=== PATIENT | female | born 1970 | race Caucasian/White ===

== ENCOUNTER 2023-12-03 17:26 | Emergency (ER) | payer BC, SELFPAY ==
[2023-12-03 17:29] VITALS: BP 120/88; PULSE 116; RESP 20; TEMP 36.6; O2SAT 100; BMI 24.9
--- NOTE | 2023-12-03 17:45 | ED.EAR1 ---
HPI - Ear Problem General Chief complaint: Upper Respiratory Infection Stated complaint: EARS/COUGH Time Seen by Provider: 12/03/23 17:28 Source: patient Mode of arrival: walk-in History of Present Illness HPI Narrative: patient complaining of severe right-sided earache today. She was just recovering from an upper rest for infection. She lists ALLERGIES penicillin but she says just gives her gastrointestinal distress but no other systemic ALLERGIC type symptomatology. She does not have a loss of voice or severe runny nose. She is treated for high blood pressure so she cannot take any decongestants. She's not had previous ear infection or surgery before. Related Data Allergies Allergy/AdvReac Type Severity Reaction Status Date / Time acetaminophen [From Percocet] Allergy Severe Verified 12/03/23 17:33 hydrocodone [From Vicodin] Allergy Severe Verified 12/03/23 17:33 meperidine [From Demerol] Allergy Severe Verified 12/03/23 17:33 oxycodone [From Percocet] Allergy Severe Verified 12/03/23 17:33 Penicillins Allergy Severe Verified 12/03/23 17:33 prochlorperazine Allergy Severe Verified 12/03/23 17:33 [From Compazine] tramadol [From Ultram] Allergy Severe Verified 12/03/23 17:33 Exam Narrative Exam Narrative: awake alert courting her right ear. On examination craniofacial structures is no facial swelling in the submandibular maxillary or facial area. There is no purulent rhinitis. Hypopharynx is normal. Left tympanic membbrane is normal. The red tympanic membrane in fact is red dull and retracted. There is no perforation yet. On rest her examination she has a slight cough but no wheeze rales or rhonchi. Skin and integument are normal. Constitutional Vital Signs, click to edit/add: Last Vital Signs Temp 97.8 F 12/03/23 17:29 Pulse 116 H 12/03/23 17:29 Resp 20 12/03/23 17:29 BP 120/88 12/03/23 17:29 Pulse Ox 100 12/03/23 17:29 O2 Del Method Room Air 12/03/23 17:29 Course Vital Signs Vital signs: Vital Signs Temperature 97.8 F 12/03/23 17:29 Pulse Rate 116 H 12/03/23 17:29 Respiratory Rate 20 12/03/23 17:29 Blood Pressure 120/88 12/03/23 17:29 Pulse Oximetry 100 12/03/23 17:29 Oxygen Delivery Method Room Air 12/03/23 17:29 Temperature 97.8 F 12/03/23 17:29 Pulse Rate 116 H 12/03/23 17:29 Respiratory Rate 20 12/03/23 17:29 Blood Pressure 120/88 12/03/23 17:29 Pulse Oximetry 100 12/03/23 17:29 Oxygen Delivery Method Room Air 12/03/23 17:29 Medical Decision Making MDM Narrative Medical decision making narrative: diagnosis right otitis media status post recent upper estuary infection. Discharge Plan Discharge Chief Complaint: Upper Respiratory Infection Clinical Impression: Otitis media Patient Disposition: Home, Self-Care Time of Disposition Decision: 17:47 Stand Alone Forms: Portal Instructions Referrals: Chuy OLMEDO [Primary Care Provider] - 1 week
[2023-12-03 18:05] VITALS: O2SAT 97
== END 2023-12-03 18:07 | disposition home or self-care (01) ==
PROVIDERS: Emergency Provider Emergency Medicine Emergency Medical Services; PCP Family Medicine
DX: H66.91 Otitis media, unspecified, right ear (principal)
CPT/HCPCS: 99283

== ENCOUNTER 2024-05-30 12:20 | Emergency (ER) | payer BC, SELFPAY ==
[2024-05-30 12:25] VITALS: BP 113/68; PULSE 87; TEMP 37.1; O2SAT 99; BMI 23.5
[2024-05-30] MEDS: LIDOCAINE/EPINEPHRINE/TETRACAINE 3 ML GEL.PF.APP TOPICAL (12:53)
--- NOTE | 2024-05-30 13:45 | ED.SKABFB1 ---
HPI - Skin/Abscess/Foreign Bdy General Chief complaint: Skin/Abscess/Foreign Body Stated complaint: skin redness Time Seen by Provider: 05/30/24 12:22 Source: patient Mode of arrival: walk-in History of Present Illness HPI narrative: Patient presents to ED complaining of an abscess on the left side of the anterior chest. It has been there about 2 weeks. It did open a little bit and brown drainage came out but it did not drain that much. She is complaining of pain and difficulty sleeping. She did call and got an appointment with the director of outreach but they cannot see her until later in the month. She came into the ED for further evaluation. No fevers. Related Data Home Medications ?Medication ?Instructions ?Recorded ?Confirmed lansoprazole 15 mg capsule,delayed 15 mg PO DAILY 05/30/24 05/30/24 release lisinopril 20 mg tablet 20 mg PO DAILY 05/30/24 05/30/24 metformin 500 mg tablet,extended 500 mg PO DAILY 05/30/24 05/30/24 release 24 hr pravastatin 20 mg tablet 20 mg PO QPM 05/30/24 05/30/24 sertraline 50 mg tablet 50 mg PO DAILY 05/30/24 05/30/24 Previous Rx's ?Medication ?Instructions ?Recorded doxycycline hyclate 100 mg capsule 100 mg PO BID 7 days #14 caps 05/30/24 Allergies Allergy/AdvReac Type Severity Reaction Status Date / Time acetaminophen [From Percocet] Allergy Severe Verified 12/03/23 17:33 hydrocodone [From Vicodin] Allergy Severe Verified 12/03/23 17:33 meperidine [From Demerol] Allergy Severe Verified 12/03/23 17:33 oxycodone [From Percocet] Allergy Severe Verified 12/03/23 17:33 Penicillins Allergy Severe Verified 12/03/23 17:33 prochlorperazine Allergy Severe Verified 12/03/23 17:33 [From Compazine] tramadol [From Ultram] Allergy Severe Verified 12/03/23 17:33 Review of Systems ROS Status of ROS 10 or more systems reviewed and unremarkable except as noted in history and below Exam Narrative Exam Narrative: General: alert, no acute distress Cardiovascular: regular rate and rhythm, normal peripheral perfusion. Respiratory: Lungs CTA, respirations non labored. Extremities: no deformity, no trauma. Neurological: oriented x 4, LOC appropriate for age. 1 x 1 cm area of induration with fluctuance and raised abscess on the left anterior chest Constitutional Vital Signs, click to edit/add: Last Vital Signs Temp 98.7 F 05/30/24 12:25 Pulse 87 05/30/24 12:25 Resp 16 05/30/24 12:25 BP 113/68 05/30/24 12:25 Pulse Ox 99 05/30/24 12:25 Course Vital Signs Vital signs: Vital Signs Temperature 98.7 F 05/30/24 12:25 Pulse Rate 87 05/30/24 12:25 Respiratory Rate 16 05/30/24 12:25 Blood Pressure 113/68 05/30/24 12:25 Pulse Oximetry 99 05/30/24 12:25 Temperature 98.7 F 05/30/24 12:25 Pulse Rate 87 05/30/24 12:25 Respiratory Rate 16 05/30/24 12:25 Blood Pressure 113/68 05/30/24 12:25 Pulse Oximetry 99 05/30/24 12:25 MDM - Skin/Abscess/Foreign Bdy MDM Narrative Medical decision making narrative: Abscess was incised and purulent drainage was released from the abscess. Loculations explored. Patient tolerated well. Bandage placed over the abscess. Patient instructed to take antibiotics at home and follow-up with dermatology or return to emergency room if worsening symptoms Differential Diagnosis Differential diagnosis: Likely abscess of skin or subcutaneous tissue and cellulitis Discharge Plan Discharge Stand Alone Forms: Portal Instructions Chief Complaint: Skin/Abscess/Foreign Body Clinical Impression: Abscess of skin or subcutaneous tissue Patient Disposition: Home, Self-Care Time of Disposition Decision: 13:37 Mode of Transportation: Private Vehicle Prescriptions / Home Meds: New doxycycline hyclate 100 mg capsule 100 mg PO BID 7 Days Qty: 14 0RF No Action lansoprazole 15 mg capsule,delayed release(DR/EC) 15 mg PO DAILY lisinopril 20 mg tablet 20 mg PO DAILY metformin 500 mg tablet extended release 24 hr 500 mg PO DAILY pravastatin 20 mg tablet 20 mg PO QPM sertraline 50 mg tablet 50 mg PO DAILY Print Language: Turkish Instructions: Abscess (ED), Incision and Drainage (ED) Referrals: Chuy OLMEDO [Primary Care Provider] - 1 week Procedures ED ID Incision & Drainage I&D Type: abcess Site: chest Side (if applicable): left Anesthetic used: with epi Technique: incised with #11 blade Amount of fluid (mL): 8 Irrigation: Yes Packing used: none
[2024-05-30] MEDS: LIDOCAINE HCL 1%-EPINEPHRINE 1:100,000 20 ML MDV INJ (13:47)
== END 2024-05-30 13:56 | disposition home or self-care (01) ==
PROVIDERS: Emergency Provider Emergency Medicine; PCP Family Medicine
DX: L02.213 Cutaneous abscess of chest wall (principal)
CPT/HCPCS: 10060; 99284

== ENCOUNTER 2024-11-26 09:59 | Emergency (ER) | payer BC, SELFPAY ==
[2024-11-26 10:08] VITALS: BP 120/81; PULSE 76; TEMP 36.9; O2SAT 100; BMI 25.8
--- NOTE | 2024-11-26 10:18 | CT_ITS ---
The [address] [address] Patient Name: CHRIS COTA MRN: [id number] date: 1970 Sex: F Assigned Patient Location: ER Current Patient Location: ER Accession/Order Number: [id number] Exam Date: 11/26/2024 10:50 Report Date: 11/26/2024 11:16 At the request of: KELLY DUMONT Procedure: CT facial bones wo con EXAMINATION: CT facial bones wo con HISTORY: gum abscess COMPARISON: No relevant comparison available. TECHNIQUE: Axial, Coronal, and Sagittal CT images created without IV contrast. Dose reduction techniques were achieved by using automated exposure control and/or adjustment of mA and/or kV according to patient size and/or use of iterative reconstruction technique. FINDINGS: FACIAL BONES: Remote surgical repair of right side of mandible. Prior surgical repair of anterior wall of left maxillary sinus. SINUSES: Mild mucosal thickening within left maxillary sinus. NASAL FOSSA: No mass, fracture, or significant septal deviation. SKULL BASE: No mass or bone destruction. ORBITS: No visible mass, hematoma, edema or fracture. SALIVARY GLANDS: No mass. Unremarkable parotid and submandibular glands. OTHER: Dental mi involving the right first incisor with disruption of anterior cortex likely accounting for the marked soft tissue swelling/edema of the upper lip and nose. No abscess or definable fluid collection. CT/CT facial bones wo con IMPRESSION: 1. Right first incisor dental cavity with disruption of anterior cortex resulting in upper lip and paranasal soft tissue edema/inflammatory changes. No abscess. Electronically authenticated by: JOSE LUIS JONES Date: 11/26/2024 11:16
--- OUTSIDE RECORDS SUMMARY | 2024-11-26 10:18 | XMS_ITS | CCD ---
Author Organization [facility] Informat ion Partnership [facility] Care Team Providers Care Limousine Driver Name Role Phone BAL, DR CARPENTER Attending Unavailable KAFTAN, DR Chuy FORD Primary Care Unavailable BAL, DR CARPENTER Admitting Unavailable BAL, DR CARPENTER Consulting Unavailable MISC, DR HORNER Consulting Unavailable MISC, DR HORNER Attending Unavailable MISC, DR HORNER Admitting Unavailable MISC, DR HORNER Primary Care Unavailable DIANNA REED Attending Unavailable SHARA, DR Chuy FORD Primary Care Unavailable DIANNA REED Admitting Unavailable DIANNA REED Consulting Unavailable FABIAN CAMPBELL Consulting Unavailable Jasen Corbett Consulting Unavailable Mary Stewart Unavailable DO Ashvin Gaona Primary Care Provider MOJGAN Queen Attending Provider [phone] DO Ashvin Gaona Primary Care Provider [phone] DO Caio Brown Emergency Provider UnaAshvin Corral Primary Care Unavailable Caio Brown Attending Unavailable Caio Brown Admitting Unavailable DOUGLAS GAONA Attending Unavailable DOUGLAS GAONA Attending Unavailable DOUGLAS GAONA Referring Unavailable DOUGLAS GAONA Attending Unavailable DOUGLAS GAONA Referring Unavailable Allergies Allergy Classification Reported Allergen(s) Allergy Type Date of Onset Reaction(s) Facility (3 sources) Codeine Drug Allergy 07-15-20 Fainting [facility] Repository (1 source) Meperidine Drug Allergy [facility] Repository (3 sources) Morphine Drug Allergy 07-15-20 Vomiting [facility] Repository (3 sources) Prochlorperazine Drug Allergy vomiting [facility] Repository (2 sources) Codeine Drug Allergy very sick Doctor At Work [facility] [employer] Other (4 sources) Meperidine Drug Allergy 07-15-20 stops breathing, Difficulty Breathing [facility] (1 source) Penicillin V Drug Allergy stomach cramping/abdom inal pain [facility] [employer] Other (2 sources) predniSONE Drug Allergy makes blood sugar go up Doctor At Work [facility] [employer] Other (3 sources) Prochlorperazine; Translations: [prochlorperazine] Drug Allergy 07-15-20 Swelling of Lip/Tongue/Thr oat [facility] (3 sources) traMADol; Translations: [tramadol] Drug Allergy 07-15-20 Vomiting [facility] (1 source) Penicillin Drug Allergy stomach cramping/abdom inal pain [facility] [employer] Other (1 source) Codeine Drug Allergy 10-22-20 [facility] Repository (1 source) Meperidine Drug Allergy 10-22-20 [facility] (1 source) Morphine Drug Allergy 10-22-20 [facility] (1 source) Penicillins Drug allergy (disorder) 08-28-20 [facility] Repository (1 source) predniSONE Drug Allergy 08-28-20 [facility] Repository Medications Current Medications Medication Drug Class(es) Dates Sig (Normalized) Sig (Original) [id number] 200 actuat albuterol 0.09 mg/actuat metered dose inhaler (4 sources) beta2-Adrenergic Agonist Start: 02-28-2022 take 2 puff(s) by inhalation four times daily as needed Albuterol Sulfate HFA 108 (90 Base) MCG/ACT 2 puffs Inhalation qid prn Feb, Active Start: 08-24-2017 Albuterol Sulf ate Active 2 INH INHALATION Q6H 8 August 23, 2017 11:00pm administer with spacer Aspirin (2 sources) Platelet Aggregation Inhibitor, Nonsteroidal Anti-inflammatory Drug aspirin Active atorvastatin (2 sources) HMG-CoA Reductase Inhibitor Lipi tor Active azithromycin 250 mg oral tablet (3 sources) Macrolide Antimicrobial Start: 02-28-2022 Azithromycin 250 MG 2 tablet on the first day, then 1 tablet daily for 4 days Orally Once a day for 5 day(s) Feb, Active Start: 02-25-2018 take 1 mg by mouth once daily Azithromycin (Zithromax) 250 mg Tablet Active 250 MG PO Daily February 24, 2018 11:00pm one daily x 4 days, first dose given in ER doxycycline hyclate 100 mg oral tablet (3 sources) Tetracycline-class Drug Start: 08-28-2023 take 1 tablet by mouth every twelve hours Doxycycline Hyclate 100 MG 1 tablet Orally Twice a day for 10 day(s) Aug, Active Start: 08-24-2017 End: 02-24-2018 take 100 mg by mouth twice daily Doxycycline Hyclate Discontinued 100 MG PO Twice daily 16 09August 23, 2017 11:00pm February 24, 2018 10:41pm ibuprofen 800 mg oral tablet (2 sources) Nonsteroidal Anti-inflammatory Drug Start: 02-25-2018 take 800 mg by mouth three times daily Ibuprofen Active 800 MG PO Three times daily February 24, 2018 11:00pm lansoprazole 15 mg delayed release oral capsule (4 sources) Proton Pump Inhibitor Start: 08-24-2017 take 1 capsule by mouth once daily Lansoprazole (Prevacid) 15 mg Capsule,Delayed Release(Dr/Ec) Active 15 MG PO Daily August 23, 2017 11:00pm Prevacid Active metFORMIN (2 sources) Biguanide metFORMIN HCl Ac tive metoprolol tartrate 50 mg oral tablet (2 sources) beta-Adrenergic Janak Start: 7 take 25 mg by mouth once daily Metoprolol Tartrate Active 25 MG PO Daily August 23, 2017 11:00pm ondansetron 4 mg oral tablet (1 source) Serotonin-3 Receptor Antagonist Start: 3 take 4 mg by mouth every eight hours Ondansetron Hcl Active 4 MG PO Q8H 15 October 22, 2023 12:00am PARoxetine hydrochloride 10 mg oral tablet (2 sources) Serotonin Reuptake Inhibitor Start: 7 take 1 tablet by mouth once daily Paroxetine Hcl (Paxil) 10 mg Tablet Active 10 MG PO Daily August 23, 2017 11:00pm predniSONE 20 mg oral tablet (3 sources) Start: 3 take 1 tablet by mouth every twelve hours predniSONE 20 MG 1 tablet Orally bid for 5 day(s) Aug, Active Start: 08-24-2017 End: 02-24-2018 take 60 mg by mouth once daily at mealtime Prednisone Discontinued 60 MG PO Daily August 23, 2017 11:00pm February 24, 2018 10:41pm administer with food or milk Sertraline (2 sources) Serotonin Reuptake Inhibitor Sertraline HCl Active statins (1 source) statins Active sucralfate 1000 mg oral tablet (1 source) Aluminum Complex Start: 10-22-2023 take 1 tablet by mouth twice daily Sucralfate (Carafate) 1 gram tablet Active 1 GM PO Twice daily 14 October 22, 2023 3:40am Problems Active Problems Problem Classification Problem Date Documented Date Episodic/Chronic Abdominal pain (1 source) Unspecified abdominal pain; Translations: [Unspecified abdominal pain] Onset: 10-22-20 Episodic Acute bronchitis (1 source) Acute bronchitis, unspecified; Translations: [ACUTE BRONCHITIS UNSPECIFIED] Onset: 10-19-20 Episodic Chronic obstructive pulmonary disease and bronchiectasis (4 sources) Bronchitis, not specified as acute or chronic; Translations: [Bronchitis] Onset: 02-29-20 Resolved : 02-29-20 Episodic Diabetes mellitus without complication (1 source) Type 2 diabetes mellitus without complications; Translations: [TYPE 2 DM WITHOUT COMPLICATIONS] Onset: 04-07-20 Chronic Disorders of lipid metabolism (1 source) Pure hypercholesterolemia, unspecified; Translations: [PURE HYPERCHOLESTEROLEMIA UNSPEC] Onset: 04-07-20 Chronic E Codes: Adverse effects of medical drugs (2 sources) Adverse effect of penicillins, initial encounter; Translations: [Adverse effect of cephalosporins and other beta-lactam antibiotics, initial encounter] Onset: 10-19-20 Episodic Essential hypertension (1 source) Essential (primary) hypertension; Translations: [ESSENTIAL PRIMARY HYPERTENSION] Onset: 04-07-20 Chronic Nausea and vomiting (6 sources) Nausea with vomiting, unspecified; Translations: [Nausea and vomiting] Onset: 04-04-20 Episodic Open wounds of head; neck; and trunk (2 sources) Laceration - injury; Translations: [Laceration] 07-05-2020 Episodic Other aftercare (1 source) Other penitentiary (current) drug therapy; Translations: [OTH ARCHIVIST CURRENT DRUG THERAPY] Onset: 10-19-20 Episodic Other aftercare (1 source) manager terminal (current) use of aspirin; Translations: [ARCHIVIST CURRENT USE OF ASPIRIN] Onset: 10-19-20 Episodic Other aftercare (2 sources) Surgical follow-up; Translations: [Encounter for removal of sutures] 07-15-2020 Episodic Other gastrointestinal disorders (6 sources) Diarrhea, unspecified; Translations: [DIARRHEA UNSPECIFIED] Onset: 04-07-20 Episodic Other gastrointestinal disorders (1 source) Diarrhea; Translations: [Diarrhea, unspecified] 10-22-2023 Episodic Other upper respiratory infections (1 source) Acute upper respiratory infection, unspecified; Translations: [ACUTE UP RESPIRATORY INFECTION UNS] Onset: 10-19-20 Episodic Pneumonia (except that caused by tuberculosis or sexually transmitted disease) (2 sources) Community acquired pneumonia; Translations: [Pneumonia, unspecified organism] 02-25-2018 Episodic Substance-related disorders (1 source) Nicotine dependence, cigarettes, uncomplicated; Translations: [NICOTINE DEPEND CIGARETTES UNCOMP] Onset: 10-19-20 Chronic Unclassified (1 source) PERSONAL HISTORY OF COVID-19; Translations: [PERSONAL HISTORY OF COVID-19] Onset: 10-19-20 Unclassified (3 sources) CONTACT W/AND (SUSP) EXPOS COVID-19; Translations: [CONTACT W/AND (SUSP) EXPOS COVID-19] Onset: 10-17-20 Viral infection (1 source) Viral disease; Translations: [Viral infection, unspecified] 10-22-2023 Episodic Past or Other Problems Problem Classification Problem Date Documented Da te Episodic/Chronic Immunizations and screening for infectious disease (1 source) Contact with and (suspected) exposure to other viral communicable diseases Onset: 02-28-2022 Resolved: 02-28-2022 Episodic Other aftercare (1 source) manager terminal (current) use of oral hypoglycemic drugs; Translations: [SENIOR CARE USE ORAL HYPOGLYCEMIC DX] Onset: 04-07-2021 Episodic Residual codes; unclassified (1 source) Acquired absence of both cervix and uterus; Translations: [ACQUIRED ABSENCE BOTH CERVIX AND UTERUS] Onset: 04-07-2021 Episodic Unclassified (1 source) CONTACT W/AND (SUSP) EXPOS COVID-19; Translations: [CONTACT W/AND (SUSP) EXPOS COVID-19] Onset: 10-12-2021 Results Test Name Value Interpretation Reference Range Facility BI MAMMOGRAM SCREENING TOMOS PAULO BILATERALon 11-01-2023 BI MAMMOGRAM SCREENING TOMOSYNTHESIS BILATERAL This is a summary report. The complete report is available in the patient's medical record. If you cannot access the medical record, please contact the sending organization for a detailed fax or copy. EXAMINATION: BI MAMMOGRAM SCREENING TOMOSYNTHESIS BILATERAL CLINICAL HISTORY: yearly mamm COMPARISON: May 06, 2020. RESULT: Digital mammography and 3D tomosynthesis of bilateral breasts was performed. The breasts are heterogenously dense which may obscure small masses. There is no suspicious mass, asymmetry, architectural distortion, or calcification. Typically benign calcifications. Overall appearance stable. IMPRESSION: BIRADS 2 - Benign. Follow-up: Routine Screening Mamm . COMMENT: Given dense breast tissue, recommend close correlation with self-breast and clinical exam findings. If any new symptoms or signs present clinically, recommend ultrasound to complement mammography. Board Certified Radiologists. Accredited by the ACR and FDA. MAMMOGRAPHY IS VERY IMPORTANT TO YOUR HEALTH. THE [employer]IET[employer] GUIDELINES RECOMMEND THAT WOMEN 40 YEARS OF AGE AND OLDER SHOULD HAVE A MAMMOGRAM EVERY YEAR. A REMINDER LETTER WILL BE SENT AT THE APPROPRIATE TIME. THIS FACILITY UTILIZES A REMINDER SYSTEM TO ENSURE ALL PATIENTS RECEIVE REMINDER NOTIFICATIONS AT THE APPROPRIATE TIME BASED ON THE RECOMMENDATIONS OF THIS EXAM. THIS INCLUDES REMINDERS FOR ROUTINE SCREENING MAMMOGRAMS, DIAGNOSTIC MAMMOGRAMS IN WHICH THE PATIENT IS ASKED TO RETURN FOR ADDITIONAL VIEWS, OR OTHER BREAST IMAGING INTERVENTIONS WHEN APPROPRIATE. THE PATIENT WILL BE PLACED IN THE APPROPRIATE REMINDER SYSTEM INCLUDING A REMINDER AT THE APPROPRIATE TIME FOR ANY PENDING ADDITIONAL VIEWS. TRANSCRIBED BY: ELECTRONICALLY SIGNED BY: Oliver Orosco MD Normal Not Available Comment on above: Order Comment: Last 2019 Alanine aminotransferase [En zymatic activity/volume] in Serum or PlasmaOrdered By: Ciao Brown on 10-22-2023 ALT [Catalytic activity/Vol] 16 U/L 7-52 [facility] Albumin [Mass/volume] in Ser um or Plasma by Bromocresol green (BCG) dye binding methoOrdered By: Caio Brown on 10-22-2023 Albumin BCG dye [Mass/Vol] 4.7 g/dL 3.5-5.7 [facility] Alkaline phosphatase [Enzyma tic activity/volume] in Serum or PlasmaOrdered By: Caio Brown on 10-22-2023 ALP [Catalytic activity/Vol] 71 U/L 34-104 [facility] Aspartate aminotransferase [ Enzymatic activity/volume] in Serum or PlasmaOrdered By: Caio Brown on 10-22-2023 AST [Catalytic activity/Vol] 19 U/L 13-39 [facility] Basic Metabolic Panelon 09-29 Anion gap [Moles/Vol] 12.9 mmol/L Normal 6.0-15.0 [facility] Comment on above: Performed By: #### H EPATIC, BMP, LIPASE, CBC #### [facility] [address] Calcium [Mass/Vol] 9.6 mg/dL Normal 8.6-10.3 [facility] Comment on above: Performed By: #### H EPATIC, BMP, LIPASE, CBC #### [facility] [address] Chloride [Moles/Vol] 106 mmol/L Normal 98-107 [facility] Comment on above: Performed By: #### H EPATIC, BMP, LIPASE, CBC #### [facility] [address] CO2 [Moles/Vol] 27.1 mmol/L Normal 21.0-31.0 [facility] Comment on above: Performed By: #### H EPATIC, BMP, LIPASE, CBC #### [facility] [address] Creatinine [Mass/Vol] 0.73 mg/dL Normal 0.60-1.20 [facility] Comment on above: Performed By: #### H EPATIC, BMP, LIPASE, CBC #### [facility] [address] [place] [address] [place] Creatinine Clr Calc Pharmacy 86.67 Normal [facility] Comment on above: Performed By: #### H EPATIC, BMP, LIPASE, CBC #### [facility] [address] [place] [address] [place] GFR/1.73 sq M.predicted MDRD (S/P/Bld) [Vol rate/Area] mL/min/{1.73_m2} Normal [facility] Comment on above: Performed By: #### H EPATIC, BMP, LIPASE, CBC #### [facility] [address] [place] [address] Glucose [Mass/Vol] 139 mg/dL High 70-100 [facility] Comment on above: Result Comment: [facility] Glucose Reference Range is dependent on time and content of last meal. Glucose of more than 200 mg/dL in a nonstressed, ambulatory subject supports the diagnosis of Diabetes Mellitus. ADA recommended reference range Performed By: #### H EPATIC, BMP, LIPASE, CBC #### [facility] [address] [place] [address] Potassium [Moles/Vol] 4.0 mmol/L Normal 3.5-5.1 [facility] Comment on above: Performed By: #### H EPATIC, BMP, LIPASE, CBC #### [facility] [address] [place] [address] Sodium [Moles/Vol] 142 mmol/L Normal 136-145 [facility] Comment on above: Performed By: #### H EPATIC, BMP, LIPASE, CBC #### [facility] [address] [place] [address] Urea nitrogen [Mass/Vol] 14 mg/dL Normal 7-25 [facility] Comment on above: Performed By: #### H EPATIC, BMP, LIPASE, CBC #### [facility] [address] [place] [address] Basophils Auto (Bld) [#/Vol] Ordered By: Caio Brown on 10-22-2023 Basophils (Bld) [#/Vol] 0.0 10*3/uL 0.0-0.2 [facility] Basophils/100 WBC Auto (Bld) Ordered By: Caio Brown on 10-22-2023 Basophils/100 WBC (Bld) 0.3 % . [facility] Bilirubin.direct [Mass/volum e] in Serum or PlasmaOrdered By: Caio Brown on 11-25-2023 Bilirubin.direct [Mass/Vol] 0.10 mg/dL 0.03-0.18 [facility] Bilirubin.total [Mass/volume ] in Serum or PlasmaOrdered By: Caiojose Brown on 10-22-2023 Bilirubin [Mass/Vol] 1.0 mg/dL 0.3-1.0 [facility] COVID CepheidOrdered By: Jose Brown on 10-22-2023 SARS-CoV-2 (COVID-19) RNA JAIMEE+probe Ql (Unsp spec) [facility] COVID-19 / Flu A/B / RSV PCR on 10-22-2023 SARS-CoV-2 (COVID-19) RNA JAIMEE+probe Ql (Unsp spec) COVID-19 Cepheid Result Negative for SARS-CoV-2 RNA by RT-PCR Flu A Cepheid Result Negative for Flu A RNA by RT-PCR Flu B Cepheid Result Negative for Flu B RNA by RT-PCR RSV Cepheid Result Negative for RSV RNA by RT-PCR COVID19 Blank Space Reference: Negative COVID19 Blank Space Cepheid Disclaimer The Cepheid Xpert Xpress CoV-2/Flu/RSV Plus has Cepheid Disclaimer not been FDA cleared or approved; this test has Cepheid Disclaimer been authorized by FDA under an EUA for use by Cepheid Disclaimer authorized laboratories; this test has been Cepheid Disclaimer authorized only for the simultaneous qualitative Cepheid Disclaimer detection and differentiation of nucleic acids from Cepheid Disclaimer SARS-CoV-2, influenza A, influenza B, and Cepheid Disclaimer respiratory syncytial virus (RSV), and not for any Cepheid Disclaimer other viruses or pathogens; and this test is only Cepheid Disclaimer authorized for the duration of the declaration that Cepheid Disclaimer circumstances exist justifying the authorization of Cepheid Disclaimer emergency use of in vitro diagnostic tests for Cepheid Disclaimer detection and/or diagnosis of COVID-19 under Cepheid Disclaimer Section 564(b)(1) of the Act, 21 U.S.C. 360bbb- Cepheid Disclaimer 3(b)(1), unless the authorization is terminated or Cepheid Disclaimer revoked sooner. PERFORMED BY: [place] [address] PATHOLOGIST HIV CTS SPECIALIST JORGE LOPEZ M.D. Normal [facility] Comment on above: Performed By: #### C OVID19 FLU RSV, CEPHEID NEG #### [facility] [address] [place] [address] [place] Calcium [Mass/volume] in Ser um or PlasmaOrdered By: Caio Brown on 10-22-2023 Calcium [Mass/Vol] 9.6 mg/dL 8.6-10.3 [facility] Carbon dioxide, total [Moles /volume] in Serum or PlasmaOrdered By: Caio Brown on 10-22-2023 CO2 [Moles/Vol] 27.1 mmol/L 21.0-31.0 [facility] Cepheid COVID PCR Negativeon 10-22-2023 SARS-CoV-2 (COVID-19) RNA JAIMEE+probe Ql (Unsp spec) Negative Normal Negative [facility] Comment on above: Result Comment: This is a duplicate Cepheid Xpert Xpress CoV-2/Flu/RSV Plus RNA by RT-PCR result to be used for statistical tracking purpose only. PERFORMED BY: [place] [address] PATHOLOGIST HIV CTS SPECIALIST JORGE LOPEZ M.D. Performed By: #### C OVID19 FLU RSV, CEPHEID NEG #### [facility] [address] [place] [address] [place] Chloride [Moles/volume] in S charlie or PlasmaOrdered By: Caio Brown on 10-22-2023 Chloride [Moles/Vol] 106 mmol/L 98-107 [facility] Complete Blood Count Auto Di ffon 10-22-2023 Basophils (Bld) [#/Vol] 0.0 10*3/uL Normal 0.0-0.2 [facility] Comment on above: Result Comment: PERF ORMED BY: [place] [address] PATHOLOGIST HIV CTS SPECIALIST JORGE LOPEZ M.D. Performed By: #### H EPATIC, BMP, LIPASE, CBC #### [address] Basophils/100 WBC (Bld) 0.3 % Normal . [facility] Comment on above: Performed By: #### H EPATIC, BMP, LIPASE, CBC #### [address] Eosinophils (Bld) [#/Vol] 0.2 10*3/uL Normal 0.0-0.45 [facility] Comment on above: Performed By: #### H EPATIC, BMP, LIPASE, CBC #### [address] Eosinophils/100 WBC (Bld) 1.9 % Normal . [facility] Comment on above: Performed By: #### H EPATIC, BMP, LIPASE, CBC #### [address] Erythrocyte distribution width (RBC) [Ratio] 13.7 % Normal 11.9-15.3 [facility] Comment on above: Performed By: #### H EPATIC, BMP, LIPASE, CBC #### [facility] [address] [place] [address] Hematocrit (Bld) [Volume fraction] 43.9 % Normal 34.0-46.4 [facility] Comment on above: Performed By: #### H EPATIC, BMP, LIPASE, CBC #### [facility] [address] [place] [address] Hemoglobin (Bld) [Mass/Vol] 15.0 g/dL Normal 11.8-15.4 [facility] Comment on above: Performed By: #### H EPATIC, BMP, LIPASE, CBC #### [address] Lymphocytes (Bld) [#/Vol] 0.5 10*3/uL Low 1.00-4.8 [facility] Comment on above: Performed By: #### H EPATIC, BMP, LIPASE, CBC #### [address] Lymphocytes/100 WBC (Bld) 4.4 % Normal . [facility] Comment on above: Performed By: #### H EPATIC, BMP, LIPASE, CBC #### [address] MCH (RBC) [Entitic mass] 29.6 pg Normal 24.7-34.3 [facility] Comment on above: Performed By: #### H EPATIC, BMP, LIPASE, CBC #### [address] MCV (RBC) [Entitic vol] 86.7 fL Normal 80-100 [facility] Comment on above: Performed By: #### H EPATIC, BMP, LIPASE, CBC #### [address] Mean Corpuscular HGB Conc 34.1 g/dL Normal 32.0-35.0 [facility] Comment on above: Performed By: #### H EPATIC, BMP, LIPASE, CBC #### [address] Monocytes (Bld) [#/Vol] 0.7 10*3/uL Normal 0.0-0.8 [facility] Comment on above: Performed By: #### H EPATIC, BMP, LIPASE, CBC #### [address] Monocytes/100 WBC (Bld) 18.43 % Normal 0.00-20.00 [facility] Comment on above: Performed By: #### H EPATIC, BMP, LIPASE, CBC #### [address] Monocytes/100 WBC (Bld) 5.3 % Normal . [facility] Comment on above: Performed By: #### H EPATIC, BMP, LIPASE, CBC #### [address] Neutrophils (Bld) [#/Vol] 10.8 10*3/uL High 1.8-7.7 [facility] Comment on above: Performed By: #### H EPATIC, BMP, LIPASE, CBC #### [address] Neutrophils/100 WBC (Bld) 88.1 % Normal . [facility] Comment on above: Performed By: #### H EPATIC, BMP, LIPASE, CBC #### [address] NRBC% 0.0 /100{WBC} Normal 0-0.5 [facility] Comment on above: Performed By: #### H EPATIC, BMP, LIPASE, CBC #### [address] Platelet mean volume (Bld) [Entitic vol] 9.3 fL Normal 6.3-10.7 [facility] Comment on above: Performed By: #### H EPATIC, BMP, LIPASE, CBC #### [address] Platelets (Bld) [#/Vol] 216 10*3/uL Normal 150-450 [facility] Comment on above: Performed By: #### H EPATIC, BMP, LIPASE, CBC #### [place] [address] [place] RBC (Bld) [#/Vol] 5.06 10*6/uL High 3.60-5.00 [facility] Comment on above: Performed By: #### H EPATIC, BMP, LIPASE, CBC #### [address] WBC (Bld) [#/Vol] 12.2 10*3/uL High 3.8-11.6 [facility] Comment on above: Performed By: #### H EPATIC, BMP, LIPASE, CBC #### [facility] [address] [place] [id number] [place] Creatinine [Mass/volume] in Serum or PlasmaOrdered By: Caio Brown on 10-22-2023 Creatinine [Mass/Vol] 0.73 mg/dL 0.60-1.20 [facility] ECG 12 lead ECGon 10-22-2023 ECG 12 lead ECG [facility] [address] [place] [address] [place] [address] Electrocardiograph Report Signed Patient: Adelaida Galvez MR#: [id number] 05 : 1970 Acct:[id number] Age/Sex: 53 / F ADM Date: 10/22/23 Loc: ER Room: Type: [facility] ER Attending Dr: Ordering Provider: Caio Brown DO Date of Service: 10/22/23 ECG/ECG 12 lead ECG: Nausea/Vomiting/Di arrhea Copies to: Test Reason : Blood Pressure : 105/059 mmHG Vent. Rate : 093 BPM Atrial Rate : 093 BPM P-R Int : 142 ms QRS Dur : 074 ms QT Int : 360 ms P-R-T Axes : 080 078 046 degrees QTc Int : 447 ms Normal sinus rhythm Confirmed by Caio Brown DO ([id number]) on 10/22/2023 8:17:03 AM Referred By: Electronically Signed By:Caio Brown DO Transcribed By: MUS Signed By Caio Brown DO [id number] Normal [facility] Eosinophils Auto (Bld) [#/Vo l]Ordered By: Caio Brown on 10-22-2023 Eosinophils (Bld) [#/Vol] 0.2 10*3/uL 0.0-0.45 [facility] Eosinophils/100 WBC Auto (Bl d)Ordered By: Caio Brown on 10-22-2023 Eosinophils/100 WBC (Bld) 1.9 % . [facility] Erythrocyte distribution wid th Auto (RBC) [Ratio]Ordered By: Caio Brown on 10-22-2023 Erythrocyte distribution width (RBC) [Ratio] 13.7 % 11.9-15.3 [facility] Globulin Calc (S) [Mass/Vol] Ordered By: Caio Brown on 10-22-2023 Globulin (S) [Mass/Vol] 2.6 g/dL [facility] Glucose [Mass/volume] in Ser um or PlasmaOrdered By: Caio Brown on 10-22-2023 Glucose [Mass/Vol] 139 mg/dL 70-100 [facility] Comment on above: ADA recommended refe rence rangeRandom Glucose Reference Range is dependent on time and content of last meal. Glucose of more than 200 mg/dL in a nonstressed, ambulatory subject supports the diagnosis of Diabetes Mellitus. Hematocrit Auto (Bld) [Volum e fraction]Ordered By: Caio Brown on 10-22-2023 Hematocrit (Bld) [Volume fraction] 43.9 % 34.0-46.4 [facility] [facility] Hem[facility] [Mass/volume] in BloodOrdered By: Caio Brown on 10-22-2023 Hemoglobin (Bld) [Mass/Vol] 15.0 g/dL 11.8-15.4 [facility] Hepatic Panelon 10-22-2023 Albumin [Mass/Vol] 4.7 g/dL Normal 3.5-5.7 [facility] Comment on above: Performed By: #### H EPATIC, BMP, LIPASE, CBC #### [facility] [address] [id number] [place] Albumin/Globulin [Mass ratio] 1.8 {ratio} Normal [facility] Comment on above: Performed By: #### H EPATIC, BMP, LIPASE, CBC #### [facility] [address] [id number] [place] ALP [Catalytic activity/Vol] 71 U/L Normal 34-104 [facility] Comment on above: Performed By: #### H EPATIC, BMP, LIPASE, CBC #### [facility] [address] [id number] [place] ALT [Catalytic activity/Vol] 16 U/L Normal 7-52 [facility] Comment on above: Performed By: #### H EPATIC, BMP, LIPASE, CBC #### [facility] [address] AST [Catalytic activity/Vol] 19 U/L Normal 13-39 [facility] Comment on above: Performed By: #### H EPATIC, BMP, LIPASE, CBC #### [facility] [address] Bilirubin [Mass/Vol] 1.0 mg/dL Normal 0.3-1.0 [facility] Comment on above: Performed By: #### H EPATIC, BMP, LIPASE, CBC #### [facility] [address] Bilirubin,Indirect 0.9 mg/dL Normal [facility] Comment on above: Performed By: #### H EPATIC, BMP, LIPASE, CBC #### [facility] [address] [place] [address] Bilirubin.indirect [Mass/Vol] 0.10 mg/dL Normal 0.03-0.18 [facility] Comment on above: Performed By: #### H EPATIC, BMP, LIPASE, CBC #### [facility] [address] [place] [address] Globulin (S) [Mass/Vol] 2.6 g/dL Normal [facility] Comment on above: Performed By: #### H EPATIC, BMP, LIPASE, CBC #### [facility] [address] [place] [address] Protein [Mass/Vol] 7.3 g/dL Normal 6.4-8.9 [facility] Comment on above: Performed By: #### H EPATIC, BMP, LIPASE, CBC #### [facility] [address] [place] [address] Leukocytes [#/volume] correc adis for nucleated erythrocytes in Blood by Automated counOrdered By: Caio Brown on 10-22-2023 WBC corrected for nucl RBC Auto (Bld) [#/Vol] 12.2 10*3/uL 3.8-11.6 [facility] Lipaseon 10-22-2023 Lipase [Catalytic activity/Vol] 9.0 U/L Low 11.0-82.0 [facility] Comment on above: Result Comment: PERF ORMED BY: [place] [address] PATHOLOGIST HIV CTS SPECIALIST JORGE LOPEZ M.D. Performed By: #### H EPATIC, BMP, LIPASE, CBC #### [address] Lipase [Enzymatic activity/v olume] in Serum or PlasmaOrdered By: Caio Brown on 10-22-2023 Lipase [Catalytic activity/Vol] 9.0 U/L 11.0-82.0 [facility] Lymphocytes Auto (Bld) [#/Vo l]Ordered By: Caio Brown on 10-22-2023 Lymphocytes (Bld) [#/Vol] 0.5 10*3/uL 1.00-4.8 [facility] Lymphocytes/100 WBC Auto (Bl d)Ordered By: Caio Brown on 10-22-2023 Lymphocytes/100 WBC (Bld) 4.4 % . [facility] MCH Auto (RBC) [Entitic mass ]Ordered By: Caio Brown on 10-22-2023 MCH (RBC) [Entitic mass] 29.6 pg 24.7-34.3 [facility] MCHC Auto (RBC) [Mass/Vol]Or dered By: Caio Brown on 10-22-2023 MCHC (RBC) [Mass/Vol] 34.1 g/dL 32.0-35.0 [facility] MCV Auto (RBC) [Entitic vol] Ordered By: Caio Brown on 10-22-2023 MCV (RBC) [Entitic vol] 86.7 fL 80-100 [facility] Monocyte distribution width [Entitic volume] in Blood by AutomatedOrdered By: Caio Brown on 10-22-2023 Monocyte distribution width Auto (Bld) [Entitic vol] 18.43 % 0.00-20.00 [facility] Monocytes Auto (Bld) [#/Vol] Ordered By: Caio Brown on 10-22-2023 Monocytes (Bld) [#/Vol] 0.7 10*3/uL 0.0-0.8 [facility] Monocytes/100 WBC Auto (Bld) Ordered By: Caio Brown on 10-22-2023 Monocytes/100 WBC (Bld) 5.3 % . [facility] Neutrophils Auto (Bld) [#/Vo l]Ordered By: Caio Brown on 10-22-2023 Neutrophils (Bld) [#/Vol] 10.8 10*3/uL 1.8-7.7 [facility] Neutrophils/100 WBC Auto (Bl d)Ordered By: Caio Brown on 10-22-2023 Neutrophils/100 WBC (Bld) 88.1 % . [facility] No Panel InformationOrdered By: Caio Brown on 10-22-2023 Estimated GFR (CKD-EPI) > 60.0 mL/Min [facility] Creatinine Clearance (Chem 86.67 [facility] Nucleated erythrocytes [Pres ence] in Blood by Automated countOrdered By: Caio Brown on 10-22-2023 Nucleated RBC Auto Ql (Bld) 0.0 /100{WBC} 0-0.5 [facility] Platelet mean volume Auto (B ld) [Entitic vol]Ordered By: Caio Brown on 10-22-2023 Platelet mean volume (Bld) [Entitic vol] 9.3 fL 6.3-10.7 [facility] Platelets Auto (Bld) [#/Vol] Ordered By: Caio Brown on 10-22-2023 Platelets (Bld) [#/Vol] 216 10*3/uL 150-450 [facility] Potassium [Moles/volume] in Serum or PlasmaOrdered By: Caio Brown on 10-22-2023 Potassium [Moles/Vol] 4.0 mmol/L 3.5-5.1 [facility] Protein [Mass/volume] in Ser um or PlasmaOrdered By: Caio Brown on 10-22-2023 Protein [Mass/Vol] 7.3 g/dL 6.4-8.9 [facility] RBC Auto (Bld) [#/Vol]Ordere d By: Caio Brown on 10-22-2023 RBC (Bld) [#/Vol] 5.06 10*6/uL 3.60-5.00 [facility] Serum or plasma albumin/glob ulin mass ratioOrdered By: Caio Brown on 10-22-2023 Albumin/Globulin [Mass ratio] 1.8 {ratio} [facility] Serum or plasma anion gap de terminationOrdered By: Caio Brown on 10-22-2023 Anion gap [Moles/Vol] 12.9 mmol/L 6.0-15.0 [facility] Serum or plasma non-glucuron idated bilirubin measurement (mass/volume)Ordered By: Caio Brown on 10-22-2023 Bilirubin.indirect [Mass/Vol] 0.9 mg/dL [facility] Sodium [Moles/volume] in Ser um or PlasmaOrdered By: Caio Brown on 10-22-2023 Sodium [Moles/Vol] 142 mmol/L 136-145 [facility] Urea nitrogen [Mass/volume] in Serum or PlasmaOrdered By: Caio Brown on 10-22-2023 Urea nitrogen [Mass/Vol] 14 mg/dL 06-21 [facility] WBC Auto (Bld) [#/Vol]Ordere d By: Caio Brown on 10-22-2023 WBC (Bld) [#/Vol] 12.2 10*3/uL 3.8-11.6 [facility] COVID-19 Detected/Not Detect edOrdered By: Lobo Queen on 11-30-2022 SARS-CoV-2 (COVID-19) RNA JAIMEE+non-probe Ql (Nph) Not detected Not Detecte [facility] Comment on above: This is a duplicate RP2.1 COVID (PCR) result to be used for statistical tracking purpose only. Respiratory pathogens DNA an d RNA panel - Nasopharynx by JAIMEE with non-probe detectionOrdered By: Lobo Queen on 11-30-2022 Respiratory pathogens DNA and RNA panel JAIMEE+non-probe (Nph) [facility] Complete Blood Count with Au to Diffon 04-29-2022 Basophils (Bld) [#/Vol] 0.12 10*3/uL Normal 0.00-0.20 [facility] Comment on above: Performed By: #### C BCAD, CMP, TSH reflex FT4 #### [facility] [address] [place], [place] [id number] Basophils/100 WBC (Bld) 1.3 % Normal [facility] Comment on above: Performed By: #### C BCAD, CMP, TSH reflex FT4 #### [facility] [address] [place], [place] [id number] Eosinophils (Bld) [#/Vol] 0.42 10*3/uL Normal 0.02-0.50 [facility] Comment on above: Performed By: #### C BCAD, CMP, TSH reflex FT4 #### [facility] [address] [place], [place] [id number] Eosinophils/100 WBC (Bld) 4.7 % Normal [facility] Comment on above: Performed By: #### C BCAD, CMP, TSH reflex FT4 #### [facility] [address] [place], [place] [id number] Erythrocyte distribution width (RBC) [Ratio] 13.0 % Normal 11.0-15.0 [facility] Comment on above: Performed By: #### C BCAD, CMP, TSH reflex FT4 #### [facility] [address] [place], [place] [id number] Hematocrit (Bld) [Volume fraction] 43.2 % Normal 35.0-47.0 [facility] Comment on above: Performed By: #### C BCAD, CMP, TSH reflex FT4 #### [facility] [address] [place], [place] [id number] Hemoglobin (Bld) [Mass/Vol] 14.1 g/dL Normal 11.6-15.5 [facility] Comment on above: Performed By: #### C BCAD, CMP, TSH reflex FT4 #### [facility] [address] [place], [place] [phone] Lymphocytes (Bld) [#/Vol] 3.6 10*3/uL Normal 0.9-3.9 [facility] Comment on above: Performed By: #### C BCAD, CMP, TSH reflex FT4 #### [facility] [address] [place], [place] [id number] Lymphocytes/100 WBC (Bld) 39.8 % Normal [facility] Comment on above: Performed By: #### C BCAD, CMP, TSH reflex FT4 #### [facility] [address] [place], [place] [id number] MCH (RBC) [Entitic mass] 28.9 pg Normal 27.0-33.0 [facility] Comment on above: Performed By: #### C BCAD, CMP, TSH reflex FT4 #### [facility] [address] [place], [place] [id number] MCHC (RBC) [Mass/Vol] 32.6 g/dL Normal 32.0-36.[address] [facility] Comment on above: Performed By: #### C BCAD, CMP, TSH reflex FT4 #### [facility] [address] [place], [place] [phone] MCV (RBC) [Entitic vol] 89 fL Normal 80-100 [facility] Comment on above: Performed By: #### C BCAD, CMP, TSH reflex FT4 #### [facility] [address] [place], [place] [id number] Monocytes (Bld) [#/Vol] 0.7 10*3/uL Normal 0.2-0.9 [facility] Comment on above: Performed By: #### C BCAD, CMP, TSH reflex FT4 #### [facility] [address] [place], [place] [id number] Monocytes/100 WBC (Bld) 7.6 % Normal [facility] Comment on above: Performed By: #### C BCAD, CMP, TSH reflex FT4 #### [facility] [address] [place], [place] [id number] Neutrophils (Bld) [#/Vol] 3.9 10*3/uL Normal 1.5-7.8 [facility] Comment on above: Performed By: #### C BCAD, CMP, TSH reflex FT4 #### [facility] [address] [place], [place] [id number] Neutrophils/100 WBC (Bld) 43.3 % Normal [place] [facility] Comment on above: Performed By: #### C BCAD, CMP, TSH reflex FT4 #### [facility] [address] [place], [place] [id number] Platelet mean volume (Bld) [Entitic vol] 12.40 fL Normal 7.50-12.50 [facility] Comment on above: Performed By: #### C BCAD, CMP, TSH reflex FT4 #### [facility] [address] [place], [place] [id number] Platelets (Bld) [#/Vol] 246 10*3/uL Normal 140-400 [facility] Comment on above: Performed By: #### C BCAD, CMP, TSH reflex FT4 #### [facility] [address] [place], [place] [id number] RBC (Bld) [#/Vol] 4.88 10*6/uL Normal 3.90-5.20 [facility] Manager Risk Management Comment on above: Performed By: #### C BCAD, CMP, TSH reflex FT4 #### [facility] [address] [place], [place] [id number] RDW-SD 42.5 fL Normal 37.0-50.0 [facility] Comment on above: Performed By: #### C BCAD, CMP, TSH reflex FT4 #### [facility] [address] [place], [place] [id number] WBC (Bld) [#/Vol] 8.9 10*3/uL Normal 3.8-11.0 [facility] Manager Risk Management Comment on above: Performed By: #### C BCAD, CMP, TSH reflex FT4 #### [facility] [address] [place], [place] [id number] Comprehensive Metabolic Pane [facility] 04-29-2022 Albumin [Mass/Vol] 4.6 g/dL Normal 3.6-5.1 [facility] [place] [facility] Risk Management Comment on above: Performed By: #### C BCAD, CMP, TSH reflex FT4 #### [facility] [address] [place], [place] [id number] Albumin/Globulin [Mass ratio] 2.0 {ratio} Normal 1.0-2.5 [facility] Manager Risk Management Comment on above: Performed By: #### C BCAD, CMP, TSH reflex FT4 #### [facility] [address] [place], [place] [id number] ALP [Catalytic activity/Vol] 91 U/L Normal 35-119 [facility] Comment on above: Performed By: #### C BCAD, CMP, TSH reflex FT4 #### [facility] [address] [place], [place] [id number] ALT [Catalytic activity/Vol] 15 U/L Normal 6-33 [facility] Comment on above: Result Comment: 10/28 Female reference range changed. Performed By: #### C BCAD, CMP, TSH reflex FT4 #### [facility] [address] [place], [place] [id number] Anion gap [Moles/Vol] 16 mmol/L Normal 12-[address] [facility] Comment on above: Result Comment: Effe ctive 12/03/2019 reference range changed. Performed By: #### C BCAD, CMP, TSH reflex FT4 #### [facility] [address] [place], [place] [id number] AST [Catalytic activity/Vol] 19 U/L Normal 9-34 [facility] Comment on above: Performed By: #### C BCAD, CMP, TSH reflex FT4 #### [facility] [address] [place], [place] [id number] Bilirubin [Mass/Vol] 0.40 mg/dL Normal 0.30-1.20 [facility] Comment on above: Performed By: #### C BCAD, CMP, TSH reflex FT4 #### [facility] [address] [place], [place] [id number] BUN/CREA 19 Ratio Normal 6-22 [facility] Comment on above: Performed By: #### C BCAD, CMP, TSH reflex FT4 #### [facility] [address] [place], [place] [id number] Calcium [Mass/Vol] 9.3 mg/dL Normal 8.6-10.2 [facility] Comment on above: Performed By: #### C BCAD, CMP, TSH reflex FT4 #### [facility] [address] [place], [place] [id number] Chloride [Moles/Vol] 104 mmol/L Normal 98-107 [facility] Comment on above: Performed By: #### C BCAD, CMP, TSH reflex FT4 #### [facility] [address] [place], [place] [id number] CO2 [Moles/Vol] 25 mmol/L Normal 20-31 [facility] Comment on above: Performed By: #### C BCAD, CMP, TSH reflex FT4 #### [facility] [address] [place], [place] [id number] Creatinine [Mass/Vol] 0.6 mg/dL Normal 0.6-1.[address] [facility] Comment on above: Performed By: #### C BCAD, CMP, TSH reflex FT4 #### [facility] [address] [place], [place] [id number] eGFRAA 138 mL/min/1.73m2 Normal >60 [facility] Specialist Comment on above: Performed By: #### C BCAD, CMP, TSH reflex FT4 #### [facility] [address] [place], [place] [id number] eGFRNAA 114 mL/min/1.73m2 Normal >60 [facility] Specialist Comment on above: Performed By: #### C BCAD, CMP, TSH reflex FT4 #### [facility] [address] [place], [place] [id number] Globulin (S) [Mass/Vol] 2.3 g/dL Normal 1.9-3.7 [facility] Comment on above: Performed By: #### C BCAD, CMP, TSH reflex FT4 #### [facility] [address] [place], [place] [id number] Glucose [Mass/Vol] 76 mg/dL Normal 65-99 [facility] Specialist Comment on above: Result Comment: For FASTING Glucose --- ADA reference ranges: Normal 65-99 mg/dl Prediabetes 100-125 Diabetes >/= 126 Performed By: #### C BCAD, CMP, TSH reflex FT4 #### [facility] [address] [place], [place] [id number] Potassium [Moles/Vol] 4.4 mmol/L Normal 3.5-5.5 [facility] Comment on above: Performed By: #### C BCAD, CMP, TSH reflex FT4 #### [facility] [address] [place], [place] [id number] Protein [Mass/Vol] 6.9 g/dL Normal 6.1-8.1 [place] [facility] Management Comment on above: Performed By: #### C BCAD, CMP, TSH reflex FT4 #### [facility] [address] [place], [place] [id number] Sodium [Moles/Vol] 140 mmol/L Normal 135-146 [facility] [place] [facility] Comment on above: Performed By: #### C BCAD, CMP, TSH reflex FT4 #### [facility] [address] [place], [place] [id number] Urea nitrogen [Mass/Vol] 11 mg/dL Normal 7-25 [facility] Manager Risk Management Comment on above: Performed By: #### C BCAD, CMP, TSH reflex FT4 #### [facility] [address] [place], [place] [id number] Hemoglobin A1Con 04-29-[address] [facility] Specialist Comment on above: Performed By: #### A 1C #### [facility] [address] [place], [place] [id number] HbA1c (Bld) [Mass fraction] 5.9 % Normal 4.0-6.0 [facility] Comment on above: Performed By: #### A 1C #### [facility] [address] [place], [place] [id number] TSH w/ Reflex to Free T4on 0 04-29-2022 TSH 1.900 uIU/mL Normal 0.400-4.500 [facility] Manager Risk Management Comment on above: Performed By: #### C BCAD, CMP, TSH reflex FT4 #### [facility] [address] [place], [place] [id number] COVID Quick Testingon 2021 Result Negative [employer] Other Quick Fluon 02-28-2022 FLUAV Ab CF (S) [Titer] Negative N [facility] [employer] Other FLUBV Ab CF (S) [Titer] Negative N [employer] Other XR CHEST 2 Von 10-15-2021 XR CHEST 2 V EXAM: XR CHEST 2 V REASON FOR EXAM: Female, 51 years, COUGH. TECHNIQUE: PA and lateral views of the chest are performed. COMPARISON: 09/01/2020. FINDINGS: There appears to be chronic scarring at the left lateral lung base. The lungs are hyperinflated. There is no focal consolidation. Surgical esau are seen at the extreme left lung apex. Normal pleura. Normal size heart. Normal mediastinum and akira. Normal visualized pulmonary arteries. Normal visualized aortic arch and descending thoracic aorta. Normal visualized thoracic spine. Normal visualized ribs, clavicles, and shoulders. There is no demonstrated abnormality of the visualized soft tissue structures of the upper abdomen. IMPRESSION: Stable scarring at the left lung base. Hyperinflation, without focal consolidation. Electronically authenticated by: JASEN CORBETT Date: 2021-10-15 18:06 Normal [facility] Covid-19 PCR (CVDTB)on 09-28 SARS-CoV-2 (COVID-19) RNA JAIMEE+probe Ql (Unsp spec) Not detected Normal NOT DETECTED [facility] Comment on above: Result Comment: This test is not yet approved or cleared by the [place] FDA. When there are no FDA-approved or cleared tests available, and other criteria are met, FDA can make tests available under an emergency access mechanism called an Emergency Use Authorization (EUA). The EUA for this test is supported by the [place] of Health and Human Service's (HHS's) declaration that circumstances exist to justify the emergency use of in vitro diagnostics for the detection and/or diagnosis of the virus that causes COVID-19. This EUA will remain in effect (meaning this test can be used) for the duration of the COVID-19 declaration justifying emergency of IVDs, unless it is terminated or revoked by FDA (after which the test may no longer be used). When diagnostic testing is negative, the possibility of a false negative should be considered in the context of a patient's recent exposures and the presence of clinical signs and symptoms consistent with SARS-CoV-2. Performed By: #### C VDTB #### [facility] [address] [place] [address] Dr. Amilcar Nunez CBC W MANUAL DIFFon 04-04-20 21 ATYPICAL LYMPH # Normal [facility] Comment on above: Performed By: #### C LOUISA #### [facility] [address] [place] [address] Reji [place] ATYPICAL LYMPH % Normal [facility] Comment on above: Performed By: #### C LOUISA #### [facility] [address] [place] [address] Reji [place] BAND # 0.1 103/ul Normal 0.0-0.3 [facility] Comment on above: Performed By: #### C LOUISA #### [facility] [address] [place] [address] Reji [place] BAND % 1 % Normal 0-5 [facility] Comment on above: Performed By: #### C LOUISA #### [facility] [address] [place] [address] Reji [place] BASOM # 0.00 103/ul Normal 0.00-0.10 [facility] Comment on above: Performed By: #### C LOUISA #### [facility] [address] [place] [address] Reji [place] BASOM % 0.0 % Critically low 0.2-2.0 [facility] Comment on above: Performed By: #### C LOUISA #### [facility] [address] [place] [address] Reji [place] BLAST # Normal [facility] Comment on above: Performed By: #### Juan JASSO #### [facility] [address] [place] [address] [place]ji [place] BLAST % Normal [facility] Comment on above: Performed By: #### C LOUISA #### [facility] [address] [place] [address] Reji [place] CORRECTED WBC Normal 4.0-11.0 [facility] Comment on above: Performed By: #### Juan JASSO #### [facility] [address] [place] [address] Reji [place] EOS # 0.00 103/ul Normal 0.00-0.70 [facility] Comment on above: Performed By: #### C LOUISA #### [facility] [address] [id number] Reji Barahona EOS% 0.0 % Critically low 0.9-7.0 [facility] Comment on above: Performed By: #### C LOUISA #### [facility] [address] [address] Reji [place] HCT 52.0 % Critically high 36.0-48.0 [facility] Comment on above: Performed By: #### C LOUISA #### [facility] [address] [address] Reji Rosasen HGB 16.8 g/dl Critically high 12.0-16.0 [facility] Comment on above: Performed By: #### Juan JASSO #### [facility] [address] [address] Reji Barahona LYMPHM # 0.84 103/ul Critically low 1.20-3.80 [facility] Comment on above: Performed By: #### Juan JASSO #### [facility] [address] [address] Reji Barahona LYMPHM% 6.0 % Critically low 20.5-60.0 [facility] Comment on above: Performed By: #### Juan JASSO #### [facility] [address] [place] [address] Reji Rosasen MCH 29.5 pg Normal 26.7-34.0 [facility] Comment on above: Performed By: #### Juan JASSO #### [facility] [address] [address] Rejisoha Rosasen MCHC 32.3 g/dl Normal 29.9-35.2 [facility] Comment on above: Performed By: #### Juan JASSO #### [facility] [address] [place] [address] Reji Baraohna MCV 91.4 fL Normal 81.0-99.0 [facility] Comment on above: Performed By: #### Juan JASSO #### [facility] [address] [place], [place] [id number] Reji [place] METAMYELOCYTE # Normal [facility] Comment on above: Performed By: #### Juan JASSO #### [facility] [address] [place], [place] [id number] Reji [place] METAMYELOCYTE % Normal [facility] Comment on above: Performed By: #### Juan JASSO #### [facility] [address] [place] [address] Reji [place] MONOM# 0.42 103/ul Normal 0.30-0.80 [facility] Comment on above: Performed By: #### Juan JASSO #### [facility] [address] [place] [address] Reji [place] MONOM% 3.0 % Normal 1.7-12.0 [facility] Comment on above: Performed By: #### Juan JASSO #### [facility] [address] [place] [address] Reji [place] MPV 11.8 fL Normal 9.5-13.5 [facility] Comment on above: Performed By: #### Juan JASSO #### [facility] [address] [place] [address] Reji [place] MYELOCYTE # Normal [facility] Comment on above: Performed By: #### Juan JASSO #### [facility] [address] [place] [address] Reji [place] MYELOCYTE % Normal [facility] Comment on above: Performed By: #### Juan JASSO #### [facility] [address] [place] [address] Reji [place] NRBC Normal [facility] Comment on above: Performed By: #### Juan JASSO #### [facility] [address] [place] [address] Reji [place] PLT 259 103/ul Normal 150-450 [facility] Comment on above: Performed By: #### Juan JASSO #### [facility] [address] [place] [address] Reji [place] RBC 5.69 106/ul Critically high 4.20-5.40 [facility] Comment on above: Performed By: #### C LOUISA #### [facility] [address] [id number] Reji Barahona RDW 12.5 % Normal 11.0-15.0 [facility] Comment on above: Performed By: #### C LOUISA #### [facility] [address] [place] [address] Reji Barahona SEG # 12.60 103/ul Critically high 1.40-6.50 [facility] Comment on above: Performed By: #### C LOUISA #### [facility] [address] [place] [address] Reji Barahona SEG % 90.0 % Critically high 43.0-75.0 [facility] Comment on above: Performed By: #### C LOUISA #### [facility] [address] [place] [address] Reji Barahona WBC 14.0 103/ul Critically high 4.0-11.0 [facility] Comment on above: Performed By: #### C LOUISA #### [facility] [address] [place], [place] [id number] Reji Barahona CULTURE URINEon 04-04-2021 CULTURE URINE Culture Observations: Modearte growth of mixed genital cecilia.No potential pathogens seen. Normal [facility] Comment on above: Performed By: #### U RCX #### [facility] [address] [place], [place] [id number] Reji Barahona ER URINE PROFILEon Bilirubin Ql (U) Negative Normal NEGATIVE [facility] Comment on above: Performed By: #### U MICRO, ERUR #### [facility] [address] [place] [address] Rejisoha Rosasen Clarity (U) CLEAR Normal CLEAR [facility] Comment on above: Performed By: #### U MICRO, ERUR #### [facility] [address] [place] [address] Reji [place] Color (U) YELLOW Normal YELLOW [facility] Comment on above: Performed By: #### U MICRO, ERUR #### [facility] [address] [address] Reji Brooklyn ERUZEBD A micrscopic examination will be performed if indicated. Normal [facility] Comment on above: Performed By: #### U MICRO, ERUR #### [facility] [address] [place] [address] Reji Brooklyn Glucose Ql (U) Negative Normal NEGATIVE [facility] Comment on above: Performed By: #### U MICRO, ERUR #### [facility] [address] [address] Reji Brooklyn Hemoglobin Ql (U) SMALL Abnormal NEGATIVE [facility] Comment on above: Performed By: #### U MICRO, ERUR #### [facility] [address] [place] [address] Reji Brooklyn Ketones Ql (U) Negative Normal NEGATIVE [facility] Comment on above: Performed By: #### U MICRO, ERUR #### [facility] [address] [place] [address] Reji Brooklyn LEUKOCYTES Negative Normal NEGATIVE [facility] Comment on above: Performed By: #### U MICRO, ERUR #### [facility] [address] [place] [address] Reji Brooklyn Nitrite Ql (U) Negative Normal NEGATIVE [facility] Comment on above: Performed By: #### U MICRO, ERUR #### [facility] [address] [place] [address] Reji [place] pH (U) 5.5 [pH] Normal 5-9 [facility] Comment on above: Performed By: #### U MICRO, ERUR #### [facility] [address] [address] Reji Brooklyn Protein (U) [Mass/Vol] 30 mg/dL Abnormal NEGAT PAPO/ TRACE [facility] Comment on above: Performed By: #### U MICRO, ERUR #### [facility] [address] [place] [address] Reji Brooklyn SPEC GRAVITY 1.025 Normal 1.005-<=1.02 5 [facility] Comment on above: Performed By: #### U MICRO, ERUR #### [facility] [address] [place] [address] Reji Barahona UR MICRO IND INDICATED Normal [facility] Comment on above: Performed By: #### U MICRO, ERUR #### [facility] [address] [place] [address] Reji Barahona Urobilinogen Qn (U) 0.2 {Rachel'U}/dL Normal 0.2 - 1. 0 [facility] Comment on above: Performed By: #### U MICRO, ERUR #### [facility] [address] [place] [address] Reji Barahona LACTATE/LACTIC ACIDon 2020 Lactate [Moles/Vol] 2.1 mmol/L Critically high 0.7-2.0 [facility] Comment on above: Performed By: #### L ACT #### [facility] [address] [place] [address] Reji Barahona LIPASEon 04-04-2021 Lipase [Catalytic activity/Vol] 61.0 U/L Normal 23.0-300.0 [facility] Comment on above: Performed By: #### L IPA, CMP #### [facility] [address] [place] [address] Reji Barahona POINT OF CARE GLUCOSEon Glucose [Mass/Vol] 152 mg/dL Critically high 74-106 T [facility] Comment on above: Performed By: #### P OCGLUC #### [facility] [address] [place] [address] Reji Barahona PROF 14(COMP METB)on 021 Albumin [Mass/Vol] 4.4 g/dL Normal 3.5-5.0 [facility] Comment on above: Performed By: #### L IPA, CMP #### [facility] [address] [place] [address] Reji Barahona Albumin/Globulin [Mass ratio] 1.0 {ratio} Normal [facility] Comment on above: Performed By: #### L IPA, CMP #### [facility] [address] [id number] Reji Brooklyn ALP [Catalytic activity/Vol] 100 U/L Normal 38-126 [facility] Comment on above: Performed By: #### L IPA, CMP #### [facility] [address] [id number] Reji [place] ALT [Catalytic activity/Vol] 26 U/L Normal 9-52 [facility] Comment on above: Performed By: #### L IPA, CMP #### [facility] [address] [id number] Reji [place] Anion gap [Moles/Vol] 17.0 mmol/L Normal [facility] Comment on above: Performed By: #### L IPA, CMP #### [facility] [address] [address] Reji [place] AST [Catalytic activity/Vol] 24 U/L Normal 14-36 [facility] Comment on above: Performed By: #### L IPA, CMP #### [facility] [address] [address] Reji [place] Bilirubin [Mass/Vol] 0.9 mg/dL Normal 0.2-1.3 [facility] Comment on above: Performed By: #### L IPA, CMP #### [facility] [address] [address] Reji [place] Calcium [Mass/Vol] 9.5 mg/dL Normal 8.4-10.2 [facility] Comment on above: Performed By: #### L IPA, CMP #### [facility] [address] [id number] Reji [place] Chloride [Moles/Vol] 104 mmol/L Normal 98-107 [facility] Comment on above: Performed By: #### L IPA, CMP #### [facility] [address] [id number] Reji [place] CO2 [Moles/Vol] 23.9 mmol/L Normal 22.0-30.0 [facility] Comment on above: Performed By: #### L IPA, CMP #### [facility] [address] [address] Reji [place] Creatinine [Mass/Vol] 1.10 mg/dL Critically high 0.52-1.04 [facility] Comment on above: Performed By: #### L IPA, CMP #### [facility] [address] [address] Reji [place] EGFR-AF MALDIVIAN >60 Normal >=60 [facility] Comment on above: Performed By: #### L IPA, CMP #### [facility] [address] [address] Reji [place] EGFR-NON AF MALDIVIAN 53 mL/min/1.73m2 Critically low >=60 [facility] Comment on above: Performed By: #### L IPA, CMP #### [facility] [address] [place] [address] Reji [place] Globulin (S) [Mass/Vol] 4.2 g/dL Normal [facility] Comment on above: Performed By: #### L IPA, CMP #### [facility] [address] [place] [address] Reji Brooklyn Glucose [Mass/Vol] 163 mg/dL Critically high 74-106 [facility] Comment on above: Performed By: #### L IPA, CMP #### [facility] [address] [place] [address] Reji [place] Potassium [Moles/Vol] 3.9 mmol/L Normal 3.4-5.0 [facility] Comment on above: Performed By: #### L IPA, CMP #### [facility] [address] [address] Reji [place] Protein [Mass/Vol] 8.6 g/dL Critically high 6.1-8.2 [facility] Comment on above: Performed By: #### L IPA, CMP #### [facility] [address] [place] [address] Reji [place] Sodium [Moles/Vol] 141 mmol/L Normal 137-145 [facility] Comment on above: Performed By: #### L IPA, CMP #### [facility] [address] [place] [address] Reji [place] Urea nitrogen [Mass/Vol] 21.0 mg/dL Critically high 7.0-17 .0 [facility] Comment on above: Performed By: #### L IPA, CMP #### [facility] [address] [place] [address] Reji Brooklyn Urea nitrogen/Creatinine [Mass ratio] 19.1 mg/mg Normal [facility] Comment on above: Performed By: #### L IPA, CMP #### [facility] [address] [place] [address] Reji [place] URINE MICROSCOPIC ONLYon BACTERIA LARGE Abnormal NONE SEEN [facility] Comment on above: Performed By: #### U MICRO, ERUR #### [facility] [address] [place] [address] Reji [place] Bacteria identified Cx Nom (U) INDICATED Normal [facility] Comment on above: Performed By: #### U MICRO, ERUR #### [facility] [address] [place] [address] Reji Brooklyn CAST NONE SEEN Normal NONE SEEN [facility] Comment on above: Performed By: #### U MICRO, ERUR #### [facility] [address] [place] [address] Reji Brooklyn Crystals LM Nom (Urine sed) NONE SEEN Normal NONE SEEN [facility] Comment on above: Performed By: #### U MICRO, ERUR #### [facility] [address] [place] [address] Reji Brooklyn Epithelial cells LM Ql (Urine sed) MODERATE Abnormal NONE SEEN /RARE [facility] Comment on above: Performed By: #### U MICRO, ERUR #### [facility] [address] [place] [address] Reji Brooklyn MUCOUS MODERATE Abnormal NONE SEEN [facility] Comment on above: Performed By: #### U MICRO, ERUR #### [facility] [address] [place] [address] Reji [place] RBC NONE SEEN Abnormal 0-2 [facility] Comment on above: Performed By: #### U MICRO, ERUR #### [facility] [address] [place], [place] [address] Reji Barahona WBC 2-5 Abnormal NONE SEEN [facility] Comment on above: Performed By: #### U MICRO, ERUR #### [facility] [address] [place], [place] [address] Reji Barahona Vital Signs Date Time Vital Sign Value Performing Clinician Facility 10-22-2023 04:00-0500 Diastolic blood pressure 56 mm[Hg] DO Ashvin Gaona Work Phone: [facility] 10-22-2023 04:00-0500 Heart rate 103 /min DO Ashvin Gaona Work Phone: [facility] 10-22-2023 04:00-0500 Respiratory rate 16 /min DO Ashvin Gaona Work Phone: [facility] 10-22-2023 04:00-0500 SaO2% (BldA) [Mass fraction] 95 % DO Ashvin Gaona Work Phone: [facility] 10-22-2023 04:00-0500 Systolic blood pressure 116 mm[Hg] DO Ashvin Gaona Work Phone: [facility] 10-22-2023 00:59-0500 Body height 170.18 cm DO Ashvin Gaona Work Phone: [facility] 10-22-2023 00:59-0500 Body temperature 97 [degF] DO Ashvin Gaona Work Phone: [facility] 10-22-2023 00:59-0500 Body weight 72.57 kg DO Ashvin Gaona Work Phone: [facility] 08-28-2023 14:30-0400 Body height 170.18 cm Mary Stewart Other [facility] Other 08-28-2023 14:30-0400 Body mass index (BMI) [Ratio] 26 kg/m2 Mary Stewart Other [facility] Other 08-28-2023 14:30-0400 Body temperature 99.1 [degF] Mary Pat Other [facility] Other 08-28-2023 14:30-0400 Body weight 75.3 kg Mary Pat Other [facility] Other 08-28-2023 14:30-0400 Diastolic blood pressure 62 mm[Hg] Mary Pat Other [facility] Other 08-28-2023 14:30-0400 SaO2% (BldA) [Mass fraction] 93 % Mary Pat Other [facility] Other 08-28-2023 14:30-0400 Systolic blood pressure 107 mm[Hg] Mary Pat Other [facility] Other 02-28-2022 11:00-0400 Body height 170.18 cm Mary Pat Other [facility] Other 02-28-2022 11:00-0400 Body mass index (BMI) [Ratio] 25.53 kg/m2 Mary Pat Other [facility] Other 02-28-2022 11:00-0400 Body temperature 97.5 [degF] Mary Pat Other [facility] Other 02-28-2022 11:00-0400 Body weight 73.94 kg Mary Pat Other [facility] Other 02-28-2022 11:00-0400 Respiratory rate 18 /min Mary Pat Other [facility] Other 02-28-2022 11:00-0400 SaO2% (BldA) [Mass fraction] 94 % Mary Stewart Other [facility] Other Encounters Encounter Date Encounter Type Care Provider Facility Start: 06-13-2024 End: 06-13-2024 ambulatory DOUGLAS BOUDREAUXAN Not Available Start: 12-26-2023 End: 12-26-2023 ambulatory DOUGLAS R HAZELFTAN Not Available Start: 12-12-2023 End: 12-12-2023 ambulatory DOUGLAS BOUDREAUXAN Not Available Start: 11-01-2023 End: 11-01-2023 ambulatory DOUGLAS BOUDREAUXAN Not Available Start: 10-22-2023 End: 10-22-2023 Emergency department patient visit Ashvin Kellerdeirdretara Facility:[facility] Start: 10-22-2023 End: 10-22-2023 Emergency department patient visit DO Ashvin Gaona Work Phone: [facility] Work Phone: Start: 08-28-2023 End: 08-28-2023 ambulatory Mary Pat Other [facility] [employer] [facility] Other Start: 08-28-2023 Office outpatient vi sit 15 minutes Mary Stewart [facility] Start: 11-30-2022 End: 11-30-2022 ambulatory DO Ashvin Gaona Work Phone: [facility] Work Phone: Start: 11-30-2022 End: 11-30-2022 Patient encounter procedure DO Ashvin Gaona Work Phone: [facility] Start: 02-28-2022 End: 02-28-2022 ambulatory Mary Stewart Other [facility] [employer] Other Start: 02-28-2022 Office outpatient vi sit 15 minutes Mary Stewart [facility] Start: 10-15-2021 End: 10-15-2021 ambulatory DIANNA REED Facility:[facility] Start: 10-12-2021 End: 10-12-[address] DOCTOR OVIEDO Facility:[facility] Start: 04-04-2021 End: 04-05-[address] PAULINE SELBY Facility:[facility] Procedures Date Procedure Procedure Detail Performing Clinician Start: 10-22-2023 SARS-CoV-2, Influenz a & RSV (PCR) DO Ashvin Gaona Work Phone: Start: 11-30-2022 Respiratory Panel (PCR) DO Ashvin Gaona Work Phone: Plan of Treatment Date Care Activity Detail Author Patient Education Nausea and Vom iting, Adult (DC) [facility] Work Phone: Patient referral [facility] Work Phone: Viral nucleic acid assay [facility] Immunizations Immunization Date Immunization Notes Care Provider Fa demetraty 07-05-2020 tetanus toxoid, redu bettye diphtheria toxoid, and acellular pertussis vaccine, adsorbed DO Ashvin Gaona Work Phone: [facility] Payers Date Payer Category Payer Self-pay [id number] 2022 Unknown [id number] 1970 Unknown [id number] 93 1970 Unknown [id number] 93 1970 Unknown [id number] 93 1970 Unknown [id number] 259 1970 Unknown [id number] 259 1970 Unknown [id number] 259 1970 Unknown [id number] 259 1959 Unknown [id number] Medicaid [id number] Unknown [employer] [id number] Unknown [id number] 31 Worker's Compensation [employer] Misc [id number] Social History Date Type Detail Facility Unknown if ever smoked [facility] Other Sex Assigned At Sex Assigned At Bir th [facility] Other Start: 07-15-2020 End: 10-22-2023 Tobacco smoking status HIIS Smoker (finding) [facility] Start: 1970 Sex Assigned At Female F [facility] Evaluation note 08-28-2023 Note Date & Type Note Facility 08-28-2023 Evaluation note Encounter Date Diagnosis Assessment Notes Aug, Bronchitis (ICD-10 - J40) Acute bronchitis home care material was printed printed Drink plenty fluids, get plenty of rest. Continue home medications as prescribed. Take the doxycycline and prednisone as prescribed until gone. Follow-up with your family physician if no improvement in 2 to 3 days. Continue to take Delsym as needed for cough. [facility] Other Evaluation note 02-28-2022 Note Date & Type Note Facility 02-28-2022 Evaluation note Encounter Date Diagnosis Assessment Notes Feb, Contact with and (suspected) exposure to other viral communicable diseases (ICD-10 - Z20.828) Feb, Bronchitis (ICD-10 - J40) Drink plenty fluids, get plenty of rest. Take the azithromycin as prescribed until gone. Use the albuterol inhaler as prescribed until your symptoms improve. Try to stop smoking. Follow-up with your family physician if no improvement in 2 to 3 days. Go to the ER for worsening symptoms or concerns Feb, Other Additional time spent conducting pre-visit phone call, screening for symptoms, instructions on social distancing, application and removal of PPE, and cleaning of examination room, equipment and supplies was preformed. Patient education given for testing methodology and results. Patient care instructions given in writting by [facility] Care At Home document. Doctor At Work [facility] [employer] Other Evaluation note Note Date & Type Note Facility Evaluation note No assessment information availa ble [facility] [employer] Work Phone: History general Narrative - Reported Note Date & Type Note Facility History general Narrative - Reported Type Medical History chronic depression Medical History hypercholesterolemia Medical History hypertension Medical History diabetes mallitus Surgical History hysterectomy Surgical History facial cosmetic surgery Surgical History Foot Surgery Surgical History cholecystectomy Surgical History lung surgery Hospitalization History see above [facility] Other Hospital Discharge instructions Note Date & Type Note Facility Hospital Discharge instructions Additional Instructions Take Zofran as prescribed for nausea vomiting. Increase your intake of fluids and rest. Take Carafate as prescribed for abdominal discomfort. Follow-up with PCP for any persistent symptoms 5 to 7 days. Return here for any intractable nausea vomiting. [facility] [employer] Work Phone: Summary Purpose Family History No Family History Records FoundNo Family History Records FoundNo Family History Records FoundNo Family History Records Found Advance Directives No Advanced Directives Records Found Advance Directive Response Recorded Date/ Time Advance Directives No July 12:08pm Chief Complaint and Reason for Visit Chief Complaint J06.9 Chief Complaint v/d Additional Source Comments INFORMATION SOURCE (unrecogn ized section and content) DATE CREATED AUTHOR 10/19/2021 Annelise myrick DATE CREATED AUTHOR AUTHOR'S ORGANIZ ATION 05/01/2022 [facility] DATE CREATED AUTHOR AUTHOR'S ORGANIZ ATION 01/06/2024 [facility] DATE CREATED AUTHOR AUTHOR'S ORGANIZ ATION 06/17/2024 [facility] dical Specialists EPIC REASON FOR VISIT (unrecogniz ed section and content) BLACK DART, COUGH, CONGESTIO NSINUSITUS, COUGH, BROCHITIS, EAR INFECTIONS, HAS BEEN ON PREDISONE, NOTHING SEEMS TO TOUCH IT. Care Teams (unrecognized sec tion and content) Team Status: Inactive Member Role Status Dates Ashvin Gaona , Primary Care Provider Active Lobo Queen PA-C Attending Provider Active Team Status: Active Member Role Status Dates Ashvin Gaona , Primary Care Provider Active Team Status: Inactive Member Role Status Dates Ashvin Gaona , Primary Care Provider Active Caio Brown , DO Emergency Provider Active Goals (unrecognized section and content) Goals may be documented in a n alternate section FOR RECORDS PERTAINING TO PATIENTS WHO ARE OR HAVE BEEN ENROLLED IN A CHEMICAL DEPENDENCY/SUBSTANCEABUSE PROGRAM, SOME INFORMATION MAY BE OMITTED. This clinical summary was aggregated from multiple sources. Caution should be exercised in using it in the provision of clinical care. This summary normalizes information from multiple sources, and as a consequence, information in this document may materially change the coding, format and clinical context of patient data. In addition, data may be omitted in some cases. CLINICAL DECISIONS SHOULD BE BASED ON THE PRIMARY CLINICAL RECORDS. [facility]. provides no warranty or guarantee of the accuracy or completeness of information in this document.
--- NOTE | 2024-11-26 10:24 | ED.GENADUL1 ---
HPI HPI - General Adult General Chief complaint: Dental/Oral Stated complaint: DENTAL SWOLLEN GUMS Time Seen by Provider: 11/26/24 10:04 Source: patient Mode of arrival: walk-in Limitations: no limitations History of Present Illness HPI narrative: Patient presents to ED complaining of upper gums swelling and dental pain. She has poor dentition and she has a fractured right central incisor. She has swelling in the gums and she said the swelling and pain is now extending into the maxillary region and right maxillary sinus area. She has tenderness to palpation in the maxilla as well as maxillary sinus area. Mild erythema. She was sent over from urgent care for a CT scan. Patient denies nausea vomiting no fevers. She does have a history of abscesses in the past. Vital signs stable. No tongue swelling no throat swelling. She is not drooling and is maintaining her airway. Related Data Home Medications ?Medication ?Instructions ?Recorded ?Confirmed lansoprazole 15 mg capsule,delayed 15 mg PO DAILY 05/30/24 05/30/24 release lisinopril 20 mg tablet 20 mg PO DAILY 05/30/24 11/26/24 metformin 500 mg tablet,extended 500 mg PO DAILY 05/30/24 11/26/24 release 24 hr pravastatin 20 mg tablet 20 mg PO QPM 05/30/24 11/26/24 sertraline 50 mg tablet 50 mg PO DAILY 05/30/24 11/26/24 Previous Rx's ?Medication ?Instructions ?Recorded doxycycline hyclate 100 mg capsule 100 mg PO BID 7 days #14 caps 05/30/24 clindamycin HCl 300 mg capsule 300 mg PO Q6H 7 days #28 caps 11/26/24 oxycodone-acetaminophen 5 mg-325 1 tab PO Q6H #14 tabs 11/26/24 mg tablet (Percocet) Allergies Allergy/AdvReac Type Severity Reaction Status Date / Time acetaminophen (From Percocet) Allergy Severe Abdominal Verified 11/26/24 10:11 Pain hydrocodone (From Vicodin) Allergy Severe Abdominal Verified 11/26/24 10:11 Pain meperidine (From Demerol) Allergy Severe Abdominal Verified 11/26/24 10:11 Pain oxycodone (From Percocet) Allergy Severe Abdominal Verified 11/26/24 10:11 Pain Penicillins Allergy Severe Abdominal Verified 11/26/24 10:11 Pain prochlorperazine (From Allergy Severe Abdominal Verified 11/26/24 10:11 Compazine) Pain tramadol (From Ultram) Allergy Severe Abdominal Verified 11/26/24 10:11 Pain Opioid HPI Opioid Management Most Recent Opioid Data: Last Pain Scale 10 11/26/24 10:58 11/26/24 Last MAR Pain Assessment 11/26/24 10:58 Review of Systems ROS Status of ROS 10 or more systems reviewed and unremarkable except as noted in history and below PFSH PFSH Social History Little interest or pleasure in doing things: not at all Feeling down, depressed, or hopeless: not at all Exam Narrative Exam Narrative: General: alert, no acute distress Cardiovascular: regular rate and rhythm, normal peripheral perfusion. Respiratory: Lungs CTA, respirations non labored. Extremities: no deformity, no trauma. Neurological: oriented x 4, LOC appropriate for age. Dental caries throughout. Fractured right central incisor with erythema and swelling to the gums. Swelling and tenderness in the maxillary region under the nose swelling and tenderness in the right maxillary sinus region Constitutional Vital Signs, click to edit/add: Last Vital Signs Temp 98.4 F 11/26/24 10:08 Pulse 76 11/26/24 10:08 Resp 18 11/26/24 10:08 BP 120/81 11/26/24 10:08 Pulse Ox 100 11/26/24 10:08 O2 Del Method Room Air 11/26/24 10:08 Course Vital Signs Vital signs: Vital Signs Temperature 98.4 F 11/26/24 10:08 Pulse Rate 76 11/26/24 10:08 Respiratory Rate 18 11/26/24 10:08 Blood Pressure 120/81 11/26/24 10:08 Pulse Oximetry 100 11/26/24 10:08 Oxygen Delivery Method Room Air 11/26/24 10:08 Temperature 98.4 F 11/26/24 10:08 Pulse Rate 76 11/26/24 10:08 Respiratory Rate 18 11/26/24 10:08 Blood Pressure 120/81 11/26/24 10:08 Pulse Oximetry 100 11/26/24 10:08 Oxygen Delivery Method Room Air 11/26/24 10:08 Medical Decision Making MDM Narrative Medical decision making narrative: Labs are negative for acute findings. Patient CT scan does not show any deep abscess or osteomyelitis. Patient was given IV clindamycin here in the ED. She does have dental insurance however does not have a dentist. I will place her on clindamycin antibiotics outpatient as well as pain medication. I stressed the importance that she has to find a dentist for further care. Return to ED if worsening symptoms fevers swelling drooling or any concerns otherwise call dental offices today and schedule follow-up appointment. Patient is understanding and comfortable with care plan. Differential Diagnosis Differential Diagnosis: Abscess, cellulitis Lab Data Lab results reviewed: Yes I reviewed the patient's lab results Labs: Lab Results 11/26/24 Range/Units 10:30 WBC 10.2 (4.0-11.0) 10^3/uL RBC 4.62 (4.20-5.40) 10^6/uL Hgb 13.8 (12.0-16.0) g/dL Hct 40.7 (36.0-48.0) % MCV 88.1 (81.0-99.0) fL MCH 29.9 (26.7-34.0) pg MCHC 33.9 (29.9-35.2) g/dL RDW 12.7 (11.0-15.0) % Plt Count 214 (150-450) 10^3/uL MPV 10.9 (9.5-13.5) fL Neut % (Auto) 68.0 (43.0-75.0) % Lymph % (Auto) 19.5 L (20.5-60.0) % [place] % (Auto) 8.6 (1.7-12.0) % Eos % (Auto) 2.9 (0.9-7.0) % Baso % (Auto) 0.8 (0.2-2.0) % Neut # (Auto) 6.9 H (1.4-6.5) 10^3/uL Lymph # (Auto) 2.0 (1.2-3.8) 10^3/uL [place] # (Auto) 0.9 H (0.3-0.8) 10^3/uL Eos # (Auto) 0.3 (0.0-0.7) 10^3/uL Baso # (Auto) 0.1 (0.0-0.1) 10^3/uL Abs Immat Gran (auto) 0.02 (0.00-0.03) 10^3/uL Imm/Tot Granulo (auto) 0.2 (0.0-0.5) % Sodium 141 (136-145) mmol/L Potassium 4.0 (3.5-5.1) mmol/L Chloride 109 H (98-107) mmol/L Carbon Dioxide 25.9 (21.0-32.0) mmol/L Anion Gap 10.1 BUN 7.0 (7.0-18.0) mg/dL Creatinine 0.69 (0.55-1.02) mg/dL Est GFR ( Amer) >60 (>=60 mL/min/1.73m^2) Est GFR (Non-Af Amer) >60 (>=60 mL/min/1.73m^2) BUN/Creatinine Ratio 10.1 Glucose 99 (74-106) mg/dL Calcium 8.4 L (8.5-10.1) mg/dL Total Bilirubin 0.6 (0.2-1.0) mg/dL AST 14 L (15-37) U/L ALT 20 (14-59) U/L Alkaline Phosphatase 83 (46-116) U/L Total Protein 6.9 (6.4-8.2) g/dL Albumin 3.6 (3.4-5.0) g/dL Globulin 3.3 g/dL Albumin/Globulin Ratio 1.[address] scan - abdomen: Radiologist's impression: ITS Impressions Facial Bones CT 11/26/24 10:18 IMPRESSION: 1. Right first incisor dental cavity with disruption of anterior cortex resulting in upper lip and paranasal soft tissue edema/inflammatory changes. No abscess. Electronically authenticated by: JOSE LUIS JONES Date: 11/26/2024 11:16 Discharge Plan Discharge Chief Complaint: Dental/Oral Clinical Impression: Dental caries, Facial swelling Patient Disposition: Home, Self-Care Time of Disposition Decision: 11:26 Condition: Good Mode of Transportation: Private Vehicle Prescriptions / Home Meds: New clindamycin HCl 300 mg capsule 300 mg PO Q6H 7 Days Qty: 28 0RF oxycodone-acetaminophen [Percocet] 5-325 mg tablet 1 tab PO Q6H Qty: 14 0RF No Action lansoprazole 15 mg capsule,delayed release(DR/EC) 15 mg PO DAILY lisinopril 20 mg tablet 20 mg PO DAILY metformin 500 mg tablet extended release 24 hr 500 mg PO DAILY pravastatin 20 mg tablet 20 mg PO QPM sertraline 50 mg tablet 50 mg PO DAILY doxycycline hyclate 100 mg capsule 100 mg PO BID 7 Days Qty: 14 0RF Print Language: Portuguese Instructions: Dental Abscess (ED) Referrals: Chuy OLMEDO [Primary Care Provider] - 1 week
[2024-11-26 10:36] LABS: Basophils Absolute Auto 0.1 10^3/uL (0.0-0.1); Basophils Percent Auto 0.8 % (0.2-2.0); Eosinophils Absolute Auto 0.3 10^3/uL (0.0-0.7); Eosinophils Percent Auto 2.9 % (0.9-7.0); Hematocrit 40.7 % (36.0-48.0); Hemoglobin 13.8 g/dL (12.0-16.0); Immature Granulocytes Abs Auto 0.02 10^3/uL (0.00-0.03); Immature Granulocytes Pct Auto 0.2 % (0.0-0.5); Lymphocytes Percent Auto 19.5 % (20.5-60.0); Mean Corpuscular HGB Conc 33.9 g/dL (29.9-35.2); Mean Corpuscular Hemoglobin 29.9 pg (26.7-34.0); Mean Corpuscular Volume 88.1 fL (81.0-99.0); Mean Platelet Volume 10.9 fL (9.5-13.5); Monocytes Absolute Auto 0.9 10^3/uL (0.3-0.8); Monocytes Percent Auto 8.6 % (1.7-12.0); Neutrophils Absolute Auto 6.9 10^3/uL (1.4-6.5); Platelet Count 214 10^3/uL (150-450); Red Blood Count 4.62 10^6/uL (4.20-5.40); Red Cell Distribution Width 12.7 % (11.0-15.0); White Blood Count 10.2 10^3/uL (4.0-11.0)
[2024-11-26 10:51] LABS: Alanine Aminotransferase 20 U/L (14-59); Albumin Globulin Ratio 1.1; Albumin Level 3.6 g/dL (3.4-5.0); Alkaline Phosphatase 83 U/L (46-116); Anion Gap 10.1; Aspartate Amino Transferase 14 U/L (15-37); BUN Creatinine Ratio 10.1; Bilirubin Total 0.6 mg/dL (0.2-1.0); Calcium 8.4 mg/dL (8.5-10.1); Carbon Dioxide 25.9 mmol/L (21.0-32.0); Chloride 109 mmol/L (98-107); Estimated GFR (African America >60 (>=60 mL/min/1.73m^2); Estimated GFR (Non-African Ame >60 (>=60 mL/min/1.73m^2); Globulin 3.3 g/dL; Glucose 99 mg/dL (74-106); Sodium 141 mmol/L (136-145); Total Protein 6.9 g/dL (6.4-8.2)
[2024-11-26] MEDS: KETOROLAC TROMETHAMINE 30 MG/ML VIAL IVP (10:58)
[2024-11-26] MEDS: CLINDAMYCIN PHOSPHATE/D5W 600 MG/50 ML PREMIX 100 MG IV (11:01)
== END 2024-11-26 11:45 | disposition home or self-care (01) ==
PROVIDERS: Emergency Provider Emergency Medicine; PCP Family Medicine
DX: K02.9 Dental caries, unspecified (principal); R22.0 Localized swelling, mass and lump, head
CPT/HCPCS: 36415; 70486; 80053; 85025; 96365; 96375; 99284; J1885